=== PATIENT | female | born 1940 | race Caucasian/White ===

== ENCOUNTER → 2016-12-02 | Outpatient (CLI) | payer MEDICARE, OTHER ==
[2014-06-20 15:45] VITALS: BP 139/76
--- NOTE | 2016-12-02 13:52 | KCIC ---
INDICATION: Follow-up endometrial nodule. TECHNIQUE: Transabdominal pelvic ultrasound initially was performed. Transvaginal imaging also was performed to better evaluate the endometrial stripe and adnexa. Comparison is from November 22, 2015. FINDINGS: Uterus measures 5.2 x 3.9 x 2.2 cm. Endometrial stripe measures 6 mm. There is fluid in the endometrial canal. Potential 4 mm polyp is similar in size to prior. A second questionable subcentimeter polyp is noted on today's exam as well, was likely present on prior. Right ovary is not visualized transabdominally or transvaginally. Left ovary contains a cyst measuring 18 mm. Small amount of free pelvic fluid is noted. IMPRESSION: 1. Small potential endometrial polyp appears similar to prior. Second subcentimeter possible polyp probably was visualized on prior. 2. Probable left ovarian cyst is similar to prior. Electronically signed by: Kenneth Randle MD (12/02/2016 1:48 PM) [email or web address]
--- NOTE | 2016-12-02 13:59 | KCIC ---
INDICATION: Thyroid nodules, follow-up. Thyroiditis. Technique: Thyroid ultrasound was performed and compared to a study from November 22, 2015. FINDINGS: Right thyroid lobe measures 2.7 x 1.0 x 1.6 cm and the left 3.3 x 1.2 x 1.5 cm. The isthmus measures 0.2 cm. Thyroid color flow appears increased from prior study. This is diffuse. 2 cystic lesions in the right thyroid lobe measuring up to 4 mm in size are noted, similar. The 4 mm solid nodule noted previously was not visualized on today's exam. On the left, there are several subcentimeter colloid cysts. There is a stable complex nodule measuring 9 mm. There is a stable cystic lesion measuring 8 mm. IMPRESSION: 1. Subcentimeter thyroid nodules appear similar to prior. 2. Increased color flow throughout the thyroid can be secondary to thyroiditis. Electronically signed by: Kenneth Randle MD (12/02/2016 1:56 PM) [id number]
--- NOTE | 2016-12-02 14:42 | KCIC ---
Bilateral digital screening mammograms: Reason for examination: Routine screening. Comparison is made to previous studies dated 11/22/2015 and 11/14/2014. The skin and nipples show no abnormalities. No abnormal axillary lymph nodes are seen. The breast parenchyma is extremely dense. (Breast density: Category D) There are no dominant masses, suspicious calcifications or architectural distortion. A few benign calcifications are again seen. Impression: No evidence of malignancy. Recommend routine screening. Your patient's mammogram demonstrates that she has dense breast tissue (breast density category C or D), which could hide abnormalities, and if she has other risk factors for breast cancer that have been identified, she might benefit from supplemental screening tests that may be suggested by you as her ordering physician. Dense breast tissue, in and of itself, is a relatively common condition. Therefore, this information is not provided to cause undue concern, but rather to raise your awareness and to promote discussion with your patient regarding the presence of other risk factors, in addition to dense breast tissue. Your patient's mammography results will be sent to her. BI-RADS Category 2: Benign. "Our facility is accredited by the [employer] Mammography [employer]." This patient's information has been entered into a reminder system for the patient to be notified with the results of her examination and a target date for the next mammogram. Electronically signed by: Bonnie Pritchard MD (12/02/2016 2:39 PM) [id number]
== END | disposition home or self-care (01) ==
LOC: KCIC MAMMO 11:30
PROVIDERS: ATTEND Family Medicine
DX: Z12.31 Encounter for screening mammogram for malignant neoplasm of breast (principal); E04.1 Nontoxic single thyroid nodule; N84.0 Polyp of corpus uteri; E06.9 Thyroiditis, unspecified
CPT/HCPCS: 76536; 76830; 76856; G0202; 77067

== ENCOUNTER → 2017-06-19 | Outpatient (CLI) | payer MEDICARE, OTHER | END | disposition home or self-care (01) | LOC: KCIC US 08:52 | DX: N63.20 Unspecified lump in the left breast, unspecified quadrant (principal); N63.10 Unspecified lump in the right breast, unspecified quadrant; N84.0 Polyp of corpus uteri; N83.202 Unspecified ovarian cyst, left side | CPT/HCPCS: 76641; 76830; 76856; 77066 ==

== ENCOUNTER → 2017-10-01 | Outpatient (CLI) | payer MEDICARE, OTHER | END | disposition home or self-care (01) | LOC: KCIC US 12:49 | DX: Z00.01 Encounter for general adult medical examination with abnormal findings (principal); I10 Essential (primary) hypertension; E11.9 Type 2 diabetes mellitus without complications | CPT/HCPCS: 93880 ==

== ENCOUNTER → 2017-12-29 | Outpatient (CLI) | payer MEDICARE, OTHER ==
[2014-06-20 15:45] VITALS: BP 139/76
--- NOTE | 2017-12-29 12:15 | KCIC ---
EXAM: Right breast sonogram. HISTORY: 77-year-old female presents for 6 month follow-up evaluation of suspected fibrocystic changes within the right breast on a prior sonogram dated 06/19/2017. TECHNIQUE: Sonographic imaging of the right breast targeted to the 1:00 position was performed. COMPARISON: 06/19/2017. FINDINGS: The previously demonstrated hypoechoic lesion at the 1:00 position 2 cm from the nipple is decreased in conspicuity compared to the prior study. This measures 8 mm in maximum dimension compared with prior measurement of 10 mm. The imaging appearance favors benign fibers cystic change. There are benign-appearing right axillary lymph nodes. There is no new suspicious sonographic finding within the right breast. IMPRESSION: 1. Decreased size and conspicuity of an 8 mm region of suspected benign fibrocystic change at the 1:00 position of the right breast. 2. No suspicious sonographic finding within the right breast. 3. BI-RADS Category 2: Benign finding(s). The patient will be due for bilateral mammography in 6 months. Electronically signed by: Estephanie Lopez MD (12/29/2017 12:11 PM) [id number]
== END | disposition home or self-care (01) ==
LOC: KCIC US 11:29
PROVIDERS: ATTEND Family Medicine
DX: R92.8 Other abnormal and inconclusive findings on diagnostic imaging of breast (principal); I10 Essential (primary) hypertension; E11.9 Type 2 diabetes mellitus without complications; Z88.8 Allergy status to other drugs, medicaments and biological substances
CPT/HCPCS: 76641

== ENCOUNTER → 2018-01-01 | Outpatient (CLI) | payer MEDICARE, OTHER ==
[2014-06-20 15:45] VITALS: BP 139/76
--- NOTE | 2018-01-01 14:25 | KCIC ---
EXAM: Abdomen sonogram. HISTORY: Thyroid nodules. TECHNIQUE: Sonographic imaging of the thyroid was performed. COMPARISON: 12/02/2016. FINDINGS: The right thyroid lobe measures 4.1 x 1.5 x 1.4 cm. The left thyroid lobe measures 4.1 x 1.4 x 1.4 cm. The isthmus measures 2.1 mm. The thyroid parenchyma is diffusely heterogeneous and contains multiple small nodules and cysts. The largest nodule is hypoechoic within the inferior left thyroid lobe measuring 7 x 7 x 5 mm. The second largest nodule is hypoechoic within the inferior right thyroid lobe measuring 7 x 6 x 4 mm. The third largest nodule is hypoechoic and measures 5 x 3 x 3 mm within the superior right thyroid lobe. There is a colloid cyst or cyst with calcification within the superior left thyroid lobe measuring 4 x 3 x 3 mm. IMPRESSION: Diffusely heterogeneous thyroid containing multiple nodules and cysts, the largest of which measures 7 mm bilaterally. The largest lesion on the left is similar compared to the prior study and the largest lesion on the right is slightly increased compared to the prior study. Electronically signed by: Estephanie Lopez MD (01/01/2018 2:22 PM) [place] [id number]
== END | disposition home or self-care (01) ==
LOC: KCIC US 12:22
PROVIDERS: ATTEND Family Medicine
DX: E04.1 Nontoxic single thyroid nodule (principal)
CPT/HCPCS: 76536

== ENCOUNTER → 2018-01-15 | Outpatient (CLI) | payer MEDICARE, OTHER ==
[2014-06-20 15:45] VITALS: BP 139/76
--- NOTE | 2018-01-15 08:36 | KCIC ---
Left breast ultrasound: Reason for examination: Left breast lumps. Comparison is made to previous examination dated 06/19/2017. Ultrasound examination was performed in the areas of concern at the 10:00 position 4 cm from the nipple and at the 7:00 position 2 cm from the nipple and at the left axilla. No discrete cystic or solid nodules are seen within the breast parenchyma at either site. No abnormal appearing lymph nodes are seen in the axilla. IMPRESSION: No focal abnormalities evident in the left breast. BI-RADS Category 1: Negative. "Our facility is accredited by the [employer] Mammography [employer]." This patient's information has been entered into a reminder system for the patient to be notified with the results of her examination and a target date for the next mammogram. Electronically signed by: Bonnie Pritchard MD (01/15/2018 8:33 AM) [facility]
== END | disposition home or self-care (01) ==
LOC: KCIC US 07:55
PROVIDERS: ATTEND Nurse Practitioner Gerontology
DX: N63.20 Unspecified lump in the left breast, unspecified quadrant (principal); I10 Essential (primary) hypertension; E11.9 Type 2 diabetes mellitus without complications; Z88.8 Allergy status to other drugs, medicaments and biological substances
CPT/HCPCS: 76641

== ENCOUNTER → 2018-07-30 | Outpatient (CLI) | payer MEDICARE, OTHER ==
[2014-06-20 15:45] VITALS: BP 139/76
--- NOTE | 2018-07-30 13:36 | KCIC ---
Transabdominal and transvaginal sonography of the pelvis Clinical indications: Endometriosis.. COMPARISON: June 19, 2017. Transabdominal sonography: The uterus is poorly visualized due to retroversion. Transvaginal sonography will be performed. No adnexal mass or free fluid is evident. Neither ovary is visualized. Transvaginal sonography: The longitudinal and AP and transverse dimensions of the uterus are 4.4 cm and 2.6 cm and 4.2 cm respectively. There is distention of the endometrial canal which is filled with fluid. The endometrial canal measures up to 7 mm. There are 2 polyps present within the endometrial canal. One on the right side measures 4.0 mm in size. It measured 5.5 mm previously. The one on the left side measures 2.1 mm. It measured 1.9 mm previously. No vascularity is seen extending into either polyp. Nonvascular debris or blood is present within the endometrial canal. Bilateral adnexal varicosities are seen. The right ovary measures 1.4 cm and 1.8 cm and 1.0 cm in size and contains a central calcification measuring 7 mm. This is unchanged. Color Doppler flow is seen within the right ovary. The left ovary measures 2.8 cm x 2.7 cm x 2.1 cm in size and contains a 2.0 cm simple cyst. This cyst measures 1.8 cm previously. Color Doppler flow is seen within the left ovary. No free fluid is evident within the cul-de-sac. IMPRESSION: Chronic 2 nonvascular endometrial polyps as discussed above. Chronic fluid distention of the endometrial canal. Debris or blood is present within the endometrial canal. Simple left ovarian cyst which now measures 2 cm in size. It measured 1.8 cm previously. Bilateral adnexal varices. Electronically signed by: Gamal Bravo MD (07/30/2018 1:33 PM) [place] [id number]
--- NOTE | 2018-07-30 16:19 | KCIC ---
Bilateral digital screening mammograms: Reason for examination: Routine screening. Comparison is made to previous study dated Interpretation was made with the benefit of CAD. The skin and nipples show no abnormalities. No abnormal axillary lymph nodes are seen. The breast parenchyma is extremely dense. (Breast density: Category D) There appears to be a small density developing posterior superiorly in the right breast seen on the right oblique view only. Further evaluation with coned compression views in CC and oblique projections and with right breast ultrasound is recommended. There are no other Dominant masses, suspicious calcifications or architectural distortion. A few benign calcifications are again seen. Impression: Nodular density seen posterior superiorly in the right breast on the oblique view only. Recommend further evaluation with additional coned compression views and ultrasound examination of the right breast. Your patient's mammogram demonstrates that she has dense breast tissue (breast density category C or D), which could hide abnormalities, and if she has other risk factors for breast cancer that have been identified, she might benefit from supplemental screening tests that may be suggested by you as her ordering physician. Dense breast tissue, in and of itself, is a relatively common condition. Therefore, this information is not provided to cause undue concern, but rather to raise your awareness and to promote discussion with your patient regarding the presence of other risk factors, in addition to dense breast tissue. Your patient's mammography results will be sent to her. BI-RADS Category 0: Incomplete. Needs additional imaging evaluation.. "Our facility is accredited by the [employer] Mammography Program." This patient's information has been entered into a reminder system for the patient to be notified with the results of her examination and a target date for the next mammogram. Electronically signed by: Bonnie Pritchard MD (07/30/2018 4:17 PM) [email or web address]
== END | disposition home or self-care (01) ==
LOC: KCIC US 08:20
PROVIDERS: ATTEND Nurse Practitioner Gerontology
DX: Z12.31 Encounter for screening mammogram for malignant neoplasm of breast (principal); R92.8 Other abnormal and inconclusive findings on diagnostic imaging of breast; N83.292 Other ovarian cyst, left side; N84.0 Polyp of corpus uteri; I86.8 Varicose veins of other specified sites
CPT/HCPCS: 76830; 76856; 77067

== ENCOUNTER → 2018-08-13 | Outpatient (CLI) | payer MEDICARE, OTHER ==
[2014-06-20 15:45] VITALS: BP 139/76
--- NOTE | 2018-08-13 13:37 | KCIC ---
Right breast diagnostic digital mammograms: Reason for examination: Nodular densities on screening mammogram. Comparison is made to mammographic exam dated 07/30/2018. Cone compression views were obtained in CC and oblique projections. With these additional views, there is dense fibroglandular tissue. There are coarse calcifications. The area of nodularity does not appear to persists posterior superiorly. Further evaluation with ultrasound will follow. IMPRESSION: Dense breast tissue with no suspicious nodules. Ultrasound to follow. BI-RADS Category 0: Incomplete. Needs additional imaging evaluation. Right breast ultrasound: Ultrasound examination was performed in the area of mammographic concern in the superior right breast and at the right axilla. In the 10:00 position 4 cm from the nipple, there is a hypoechoic circumscribed lesion measuring 6.9 mm in greatest dimension which is lying in parallel orientation consistent with a small fibroadenoma. In the 10:00 position 4.5 cm from the nipple, there is a 5.9 mm hypoechoic circumscribed lesion containing coarse calcifications and consistent with a degenerating fibroadenoma. No other focal suspicious nodules are seen. No abnormal appearing lymph nodes are seen in the axilla. IMPRESSION: 2 small circumscribed nodules probably representing fibroadenoma at the 10:00 position 4 cm and 4.5 cm from the nipple. No suspicious lesion seen. Recommend reevaluation with ultrasound in 6 months. BI-RADS Category 3: Probably Benign. "Our facility is accredited by the [employer] Mammography [employer]." This patient's information has been entered into a reminder system for the patient to be notified with the results of her examination and a target date for the next mammogram. Electronically signed by: Bonnie Pritchard MD (08/13/2018 1:34 PM) [email or web address]
== END | disposition home or self-care (01) ==
LOC: KCIC MAMMO 07:38
PROVIDERS: ATTEND Nurse Practitioner Gerontology
DX: N63.11 Unspecified lump in the right breast, upper outer quadrant (principal)
CPT/HCPCS: 76641; 77065

== ENCOUNTER → 2018-11-06 | Outpatient (CLI) | payer MEDICARE, OTHER ==
[2014-06-20 15:45] VITALS: BP 139/76
--- NOTE | 2018-11-06 10:29 | KCIC ---
US SOFT TISSUE HEAD AND NECK CLINICAL INDICATION: Enlarged thyroid. Neck pain/thyroid follow-up nodules. PROCEDURE: Transverse and longitudinal grayscale and color Doppler images of the thyroid were obtained. COMPARISON: 01/01/2018. FINDINGS: Right: The right thyroid lobe measures 3.8 x 1.7 x 1.4 cm. Hypoechoic well-circumscribed nodule is seen in the superior aspect of the thyroid lobe measuring 0.3 x 0.4 x 0.4 cm, previously 0.5 x 0.3 x 0.3 cm. Hypoechoic nodule in the inferior aspect of the thyroid lobe measuring 0.6 x 0.5 x 0.7 cm, previously 0.7 x 0.4 x 0.6 cm couple of internal calcifications. Isthmus: Measures 3 cm in thickness and is within normal limits. Left: The left thyroid lobe measures 4.0 x 1.6 x 1.2 cm. Hypoechoic well-circumscribed nodule is seen in the inferior aspect of the left thyroid lobe measuring 0.8 x 0.6 x 0.7 cm, previously 0.7 x 0.5 x 0.7 cm. Hypoechoic nodule with well-circumscribed margins and central calcification seen in the mid thyroid lobe measuring 0.5 x 0.4 x 0.4 cm, previously 0.4 x 0.3 x 0.3 cm. IMPRESSION: Bilateral thyroid nodules with minimal change as described above. Electronically signed by: Raudel Colón DO (11/06/2018 10:26 AM) [facility]
== END | disposition home or self-care (01) ==
LOC: KCIC US 07:55
PROVIDERS: ATTEND Family Medicine
DX: E04.2 Nontoxic multinodular goiter (principal); E07.89 Other specified disorders of thyroid
CPT/HCPCS: 76536

== ENCOUNTER → 2019-11-03 | Outpatient (CLI) | payer MEDICARE, OTHER ==
[2014-06-20 15:45] VITALS: BP 139/76
--- NOTE | 2019-11-03 11:31 | KCIC ---
Bilateral digital diagnostic mammogram and right breast ultrasound Reason for examination: Follow-up of probably benign right breast nodules. Comparison is made to previous study dated right breast ultrasound August 13, 2018. Mammogram August 13, 2018 and priors. Routine CC and MLO digital views obtained. Interpretation was made with the benefit of CAD. Mammogram: The skin and nipples show no abnormalities. No abnormal axillary lymph nodes are seen. The breast parenchyma is extremely dense. (Breast density: Category D.) There are no suspicious masses, suspicious calcifications or architectural distortion. Benign calcifications. ULTRASOUND: Right breast 10:00 position 4 cm from the nipple demonstrates 2 adjacent parallel oval circumscribed hypoechoic nonshadowing masses each measuring 6 x 3 mm one of which has dystrophic calcification, these are stable to the prior study from 2019 most typical of fibroadenomas. No suspicious abnormality. No axillary adenopathy. Impression: 2 probably benign right upper outer breast masses typical of fibroadenomas are stable from one year ago. Attention on follow-up bilateral mammogram and right breast ultrasound in one year is advised to document continued stability. ?Your patient's mammogram demonstrates that she has dense breast tissue (breast density category C or D), which could hide abnormalities, and if she has other risk factors for breast cancer that have been identified, she might benefit from supplemental screening tests that may be suggested by you as her ordering physician. Dense breast tissue, in and of itself, is a relatively common condition. Therefore, this information is not provided to cause undue concern, but rather to raise your awareness and to promote discussion with your patient regarding the presence of other risk factors, in addition to dense breast tissue. Your patient's mammography results will be sent to her. BI-RAD Category 3: Probably benign. "Our facility is accredited by the [employer] Mammography Program." This patient's information has been entered into a reminder system for the patient to be notified with the results of her examination and a target date for the next mammogram. Electronically signed by: Mathieu Patel MD (11/03/2019 11:29 AM) [email or web address]
--- NOTE | 2019-11-03 11:50 | KCIC ---
Pelvic and transvaginal ultrasound History: Pelvic pain Comparison: None. Findings: Multiple transabdominal sonographic images of the pelvis are submitted. Pelvic structures are poorly seen. Transvaginal ultrasound: Multiple transvaginal sonographic images of the pelvis are submitted. Retroverted uterus measures 5.3 x 3.3 x 2.6 cm. There is fluid in the endometrial cavity. Overall endometrium measures about 0.8 cm although actual composite thickness of the endometrial castillo is about 0.3 cm when subtracting the endometrial fluid. There is a small 0.2 cm focus of echogenicity in the endometrial cavity, separate focus about 0.3 cm. Right ovary could not be visualized. Left ovary measured 2.5 x 1.9 x 1.8 cm there is a hypoechoic lesion of left ovary about 1.9 x 1.4 x 1.5 cm. There is trace free fluid in the cul-de-sac. There are varices of the left adnexal region. Impression: 1. There is nonspecific fluid in the endometrial cavity. There are 2 separate hyperechoic foci of the endometrium likely due to small polyps, largest 0.3 cm. 2. There is nonspecific trace free fluid in the cul-de-sac. 3. There is left ovarian cyst up to 1.9 cm. There are varices of the left adnexal region. 4. Right ovary could not be visualized. Electronically signed by: Stanley Pinon MD (11/03/2019 11:46 AM) [id number]
--- NOTE | 2019-11-03 13:33 | KCIC ---
Examination: THYROID ULTRASOUND History: Reason: THYROID NODULE / Spl. Instructions: / History: Comparison/Correlation: 11/06/2018, 01/01/2018, 12/02/2016 thyroid ultrasound exams Findings: Right thyroid lobe measures 3.8 cm x 1.4 cm x 1.8 cm. The thyroid lobe measures 3.6 cm x 1.5 cm x 1.7 cm. Right thyroid lobe superior pole 0.45 cm 0.46 cm 0.3 cm complex nodules present. Right thyroid lobe inferior pole 0.7 cm x 0.7 cm x 0.8 cm mildly complex nodules present. Left thyroid lobe 0.5 cm maximum diameter hypoechoic nodule with central coarse calcification is present. It is well-circumscribed. Left thyroid lobe inferior pole 0.7 cm maximum diameter nodule is present. Thyroid isthmus measures up to 0.4 cm anteroposterior. Thyroid gland is diffusely heterogeneous in echotexture. Impression: TI-RADS category 2-benign. No suspicious finding or suspicious change since at least 12/02/2016. Electronically signed by: Alli Roe MD (11/03/2019 1:31 PM) [id number]
== END | disposition home or self-care (01) ==
LOC: KCIC US 07:49
PROVIDERS: ATTEND Family Medicine
DX: N63.11 Unspecified lump in the right breast, upper outer quadrant (principal); R92.1 Mammographic calcification found on diagnostic imaging of breast; N85.4 Malposition of uterus; N83.202 Unspecified ovarian cyst, left side; E04.2 Nontoxic multinodular goiter
CPT/HCPCS: 76536; 76641; 76856; 77066

== ENCOUNTER → 2021-01-18 | Outpatient (CLI) | payer MEDICARE, OTHER ==
[2014-06-20 15:45] VITALS: BP 139/76
--- NOTE | 2021-01-18 10:20 | KCIC ---
Procedure: Bilateral diagnostic mammogram and targeted right breast ultrasound. INDICATION: Follow up probably benign masses in the right upper outer quadrant. COMPARISON: Mammograms from the 08/13/2018, 07/30/2018 and 06/19/2017. Right breast ultrasounds from 11/02 and 08/13/2018. 2-D digital CC and MLO views were obtained. Due to the patient's kyphosis, positioning was limited an d 3-D images could not be obtained. A supplemental right medial CC view was performed. FINDINGS MAMMOGRAM: Breast density: Category D. The breasts are extremely dense which lowers sensitivity of mammography. Again seen is an oval mass with large rounded calcifications in the 10:00 position of the right breas t about 4 cm from the nipple. No other discrete breast mass is visualized. No malignant appearing rossy cifications or evidence of architectural distortion is seen. TARGETED RIGHT BREAST ULTRASOUND: The area concern on previous ultrasound was imaged. The axilla was evaluated. Again seen is the small oval hypoechoic circumscribed mass in the 10:00 position, 4 cm from the nippl e. This measures 7 mm in maximum dimension and has not changed significantly. Adjacent to this at 10: 00, 4.5 cm from the nipple, there is a oval hypoechoic circumscribed mass containing calcifications w hich measures 6 mm in maximum dimension. This is unchanged. It corresponds to the calcified mass seen on mammogram. No axillary adenopathy is seen. IMPRESSION: No evidence of malignancy. There are 2 benign masses in the 10:00 position right breast c onsistent with fibroadenomas. These have not changed since 2019. No further ultrasound follow-up is n eeded. ASSESSMENT: BI-RADS 2. Benign findings. RECOMMENDATIONS: Routine screening mammograms. Results were given to the patient at time of examination. Your patient's mammogram demonstrates that she has dense breast tissue (breast density category C or D), which could hide abnormalities, and if she has other risk factors for breast cancer that have bee n identified, she might benefit from supplemental screening tests that may be suggested by you as her ordering physician. Dense breast tissue, in and of itself, is a relatively common condition. Therefo re, this information is not provided to cause undue concern, but rather to raise your awareness and t o promote discussion with your patient regarding the presence of other risk factors, in addition to d ense breast tissue. This patient's information has been entered into a reminder system for the patient to be notified wit h the results of her examination by mail and a target date for the next mammogram. A reminder letter will be generated. Electronically signed by: Vibha Jesus MD (01/18/2021 10:18 AM) [email or web address]
--- NOTE | 2021-01-18 17:27 | KCIC ---
EXAMINATION: US PELVIS W/TV, 01/18/2021 9:15 AM CLINICAL INDICATION: Thickened endometrium. One year follow-up. TECHNIQUE: Grayscale, color and spectral Doppler ultrasound images of the pelvis via transabdominal a nd transvaginal approach. COMPARISON: Pelvic ultrasound 11/03/2019. FINDINGS: The uterus measures 5.5 x 2.1 x 3.9 cm. cm. There is anechoic fluid in the endometrial canal. The end ometrial canal measures 7 mm in diameter in the castillo of the endometrium probably measure about 2 mm this is similar appearance to the prior exam. There are 2 small echogenic nodules in the endometrial canal measuring 4 mm and 5 mm. Neither of these has internal vascularity. There right ovary is not visualized. The left ovary measures 3.4 x 2.6 x 1.7 cm. There is an anechoic simple cystic structure in the left ovary measuring 2.3 x 2.2 x 1.6 cm. Normal left ovarian blood fl ow. There are prominent left adnexal vessels. IMPRESSION: 1. No significant change in 2 probable endometrial polyps measuring 4 to 5 mm. There is simple fluid in the endometrial canal, similar to 11/03/2019. 2. Anechoic cystic lesion in the left ovary is unchanged in size measuring approximately 2 cm. 3. There are prominent vessels in the left adnexa. 4. Right ovary is not visualized. . Electronically signed by: Courtney Rider MD (01/18/2021 5:25 PM) [id number]
== END ==
LOC: KCIC MAMMO 07:59
PROVIDERS: ATTEND Obstetrics & Gynecology
DX: N63.11 Unspecified lump in the right breast, upper outer quadrant (principal); R92.8 Other abnormal and inconclusive findings on diagnostic imaging of breast; R93.89 Abnormal findings on diagnostic imaging of other specified body structures; N83.292 Other ovarian cyst, left side
CPT/HCPCS: 76641; 76830; 76856; 77066